=== PATIENT | female | born 1970 | race Caucasian/White ===

== ENCOUNTER 2025-01-07 11:08 | Inpatient (IN) | payer MEDICARE, OTHER ==
[2025-01-07] VITALS (13 sets, daily range): BP systolic 90–110; BP diastolic 56–81; TEMP 97.9–98.5; O2SAT 95–98
[~2025-01-07] VITALS: Ht 165.1 cm; Wt 104.3 kg
[2025-01-07] MEDS ORDERED: ACETAMINOPHEN 650 MG/SUPP.RECT RC ONE (11:42)
[2025-01-07] MEDS: IV NS 0.9% 1,000 ML BAG IV ONE (11:45)
[2025-01-07 11:52] LABS: BASOPHILS % (AUTO) 0.2 % (0.0-2.0); EOSINOPHILS % (AUTO) 0.1 % (0.0-6.0); HEMATOCRIT 39 % (33-45); HEMOGLOBIN 12.9 g/dL (11.5-14.8); LYMPHOCYTES # (AUTO) 0.6 K/uL (0.8-4.8); LYMPHOCYTES % (AUTO) 3.2 % (20.0-44.0); MEAN CORPUSCULAR HEMOGLOBIN 30 PG (26.0-33.0); MEAN CORPUSCULAR HGB CONC 33 g/dl (31.0-36.0); MEAN CORPUSCULAR VOLUME 90 fL (82-100); MONOCYTES # (AUTO) 0.7 K/uL (0.1-1.30); MONOCYTES % (AUTO) 4.3 % (2.0-12.0); NEUTROPHILS % (AUTO) 92.2 % (43.0-81.0); PLATELET COUNT (AUTO) 243 K/uL (150-450); RED BLOOD CELL COUNT(AUTO) 4.31 MIL/uL (4.0-5.2); RED CELL DISTRIBUTION WIDTH 13.4 % (11.5-15.0); WHITE BLOOD COUNT (AUTO) 17.4 K/uL (4.3-11.0)
[2025-01-07] MEDS: ACETAMINOPHEN 650 MG/SUPP.RECT RC ONE (11:53)
[2025-01-07] MEDS: PIPERACILLIN /TAZOBACTAM 3.375 G in IV D5W 50 ML IV ONE (11:54)
[2025-01-07 11:59] LABS: CALCIUM, SERUM 8.8 mg/dL (8.5-10.1); CARBON DIOXIDE 23 mmol/L (21-32); CHLORIDE 104 mmol/L (98-107); CREATININE 1.4 mg/dL (0.6-1.3); GLUCOSE 207 mg/dL (74-106); POTASSIUM 4.4 mmol/L (3.5-5.1); SODIUM SERUM 139 mmol/L (136-145); UREA NITROGEN, BLOOD 14 mg/dL (7-18)
[2025-01-07 12:05] LABS: ALANINE AMINOTRANSFERASE 70 U/L (12-78); ALKALINE PHOSPHATASE 154 U/L (46-116); ASPARTATE AMINOTRANSFERASE 69 U/L (15-37); BILIRUBIN,DIRECT 0.2 mg/dL (0.0-0.2); BILIRUBIN,TOTAL 0.7 mg/dL (0.2-1.0); TOTAL PROTEIN, SERUM 7.4 g/dL (6.4-8.2)
[2025-01-07] MEDS ORDERED: BISA10SU11 RC (12:06)
[2025-01-07] MEDS ORDERED: LEVO5TAB29 PO (12:06)
[2025-01-07] MEDS ORDERED: OXYC5TAB3 PO (12:06)
[2025-01-07] MEDS ORDERED: FLUT16SP BNOSTRILS (12:06)
[2025-01-07] MEDS ORDERED: ACID1TAB14 PO (12:06)
[2025-01-07] MEDS ORDERED: SODI45SP6 BNOSTRILS (12:06)
[2025-01-07] MEDS ORDERED: SIMV-49 PO (12:06)
[2025-01-07] MEDS ORDERED: NA P133E RC (12:06)
[2025-01-07] MEDS ORDERED: PANT40TA49 PO (12:06)
[2025-01-07] MEDS ORDERED: MAGN400O6 PO (12:06)
[2025-01-07] MEDS ORDERED: DIPH25TA62 PO (12:06)
[2025-01-07] MEDS ORDERED: ACET325T53 PO ×2 (12:06)
[2025-01-07] MEDS ORDERED: ALBU18HF2 IH (12:06)
[2025-01-07] MEDS ORDERED: ACET-73 PO (12:06)
[2025-01-07] MEDS ORDERED: PREG-57 PO (12:06)
[2025-01-07] MEDS ORDERED: LEVO75TA7 PO (12:06)
[2025-01-07] MEDS ORDERED: SENN-261 PO (12:06)
[2025-01-07 12:10] LABS: APPEARANCE,URINE CLEAR (CLEAR); BILIRUBIN,URINE SMALL (NEGATIVE); BLOOD, URINE Large Ery/uL (NEGATIVE); COLOR,URINE YELLOW (YELLOW); KETONES,URINE 40 mg/dL (NEGATIVE); LEUKOCYTE ESTERASE ,URINE Trace (NEGATIVE); PROTEIN,URINE 100 mg/dl (NEGATIVE); UGLUCOSE Negative (NEGATIVE)
[2025-01-07 12:11] LABS: LACTIC ACID 6.3 mmol/L (0.4-2.0)
[2025-01-07 12:13] LABS: NITRITE, URINE NEGATIVE (NEGATIVE)
[2025-01-07 12:19] LABS: INR 0.99 (0.91-1.10); PARTIAL THROMBOPLASTIN TIME 24.7 SEC (24.3-34.3); PROTHROMBIN TIME 10.2 SECS (9.2-11.1)
[2025-01-07 12:28] LABS: ADD URINE CULTURE NO; BACTERIA,URINE Few /HPF (None Seen)
[2025-01-07] MEDS: VANCOMYCIN 1 GM in IV D5W 250 ML IV ONE (12:28)
[2025-01-07] MEDS ORDERED: NOREPINEPHRINE 8 MG in IV D5W 242 ML IV PRN ×2 (13:00→17:00)
[2025-01-07] MEDS: ENOXAPARIN SODIUM 40 MG/0.4 ML DISP.SYRIN SQ SCH (14:00)
[2025-01-07] MEDS: IV D5/ 0.9% NACL 1,000 ML IV PRN (14:44)
[2025-01-07] MEDS ORDERED: IBUPROFEN 400 MG TABLET ONE (15:20)
[2025-01-07] MEDS: IBUPROFEN 400 MG TABLET PO ONE (15:28)
[2025-01-07] MEDS: VANCOMYCIN HCL 1.25 GM in IV D5W 250 ML IV ONE (17:00)
[2025-01-07] MEDS: FLUTICASONE PROPIONATE 16 GM BOTTLE NS SCH (19:11)
[2025-01-07] MEDS: PIPERACILLIN /TAZOBACTAM 3.375 G in IV D5W 100 ML IV SCH (19:58)
[2025-01-07] MEDS: SENNOSIDES 8.6 MG TABLET PO SCH (23:16)
[2025-01-07] MEDS: SIMVASTATIN 20 MG TABLET PO SCH (23:16)
[2025-01-08] VITALS (28 sets, daily range): BP systolic 93–125; BP diastolic 50–89; TEMP 98–99.5; O2SAT 94–99
[2025-01-08 04:24] LABS: BASOPHILS % (AUTO) 0.3 % (0.0-2.0); EOSINOPHILS # (AUTO) 0.4 K/uL (0.0-0.7); EOSINOPHILS % (AUTO) 2.8 % (0.0-6.0); HEMATOCRIT 34 % (33-45); HEMOGLOBIN 11.5 g/dL (11.5-14.8); LYMPHOCYTES # (AUTO) 0.9 K/uL (0.8-4.8); LYMPHOCYTES % (AUTO) 5.9 % (20.0-44.0); MEAN CORPUSCULAR HEMOGLOBIN 30 PG (26.0-33.0); MEAN CORPUSCULAR HGB CONC 34 g/dl (31.0-36.0); MEAN CORPUSCULAR VOLUME 90 fL (82-100); MONOCYTES # (AUTO) 1.1 K/uL (0.1-1.30); MONOCYTES % (AUTO) 7.2 % (2.0-12.0); NEUTROPHILS # (AUTO) 12.4 K/uL (1.8-8.9); NEUTROPHILS % (AUTO) 83.8 % (43.0-81.0); PLATELET COUNT (AUTO) 197 K/uL (150-450); RED CELL DISTRIBUTION WIDTH 13.7 % (11.5-15.0); WHITE BLOOD COUNT (AUTO) 14.8 K/uL (4.3-11.0)
[2025-01-08 04:45] LABS: CALCIUM, SERUM 8.3 mg/dL (8.5-10.1); CREATININE 0.8 mg/dL (0.6-1.3); MAGNESIUM 1.9 mg/dL (1.8-2.4); PHOSPHORUS 3.6 mg/dL (2.5-4.9); POTASSIUM 3.9 mmol/L (3.5-5.1)
[2025-01-08] MEDS: ACETAMINOPHEN 325 MG TABLET PO PRN (05:01)
[2025-01-08] MEDS: PANTOPRAZOLE 40 MG TABLET.DR PO SCH (07:58)
[2025-01-08] MEDS: LEVOTHYROXINE SODIUM 75 MCG TABLET PO SCH (07:59)
[2025-01-08] MEDS: ACIDOPHILUS/BULGARICUS 1 EACH TAB.CHEW PO SCH (08:01)
[2025-01-08] MEDS ORDERED: GUAIFENESIN/CODEINE 10 ML UDC PO PRN (12:00)
[2025-01-08] MEDS: ONDANSETRON HCL/PF 4 MG/2 ML VIAL IVP PRN (15:54)
[2025-01-08] MEDS: VANCOMYCIN 1 GM in IV D5W 250ml IV SCH (16:00)
[2025-01-08] MEDS: PREGABALIN 25 MG CAPSULE PO SCH (16:02)
[2025-01-08] MEDS: VANCOMYCIN 500 MG in IV D5W 100ml IV SCH (17:46)
[2025-01-08] MEDS: GUAIFENESIN/D-METHORPHAN HB 5 ML UDC PO PRN (18:47)
[2025-01-08] MEDS: ZOLPIDEM TARTRATE 5 MG TABLET PO PRN (23:49)
[2025-01-09] VITALS: BP 129/81; TEMP 98.2; O2SAT 95
[2025-01-09 04:00] VITALS: BP 139/86; TEMP 98.8; O2SAT 98
[2025-01-09 08:00] VITALS: BP 119/85; TEMP 98.2; O2SAT 92
[2025-01-09 12:00] VITALS: BP 116/73; TEMP 98.6; O2SAT 92
[2025-01-09] MEDS: diphenhydrAMINE HCL 50 MG/ML VIAL IV ONE (13:00)
[2025-01-09] MEDS: METOCLOPRAMIDE HCL 10 MG/2 ML VIAL IV ONE (13:00)
[2025-01-09 16:00] VITALS: BP 101/58; TEMP 98.6; O2SAT 92
[2025-01-09 17:25] LABS: CREATININE 0.7 mg/dL (0.6-1.3); POTASSIUM 3.8 mmol/L (3.5-5.1)
[2025-01-09 17:45] LABS: BASOPHILS % (AUTO) 0.5 % (0.0-2.0); EOSINOPHILS # (AUTO) 0.4 K/uL (0.0-0.7); EOSINOPHILS % (AUTO) 4.2 % (0.0-6.0); HEMATOCRIT 33 % (33-45); HEMOGLOBIN 11.2 g/dL (11.5-14.8); LYMPHOCYTES # (AUTO) 1.6 K/uL (0.8-4.8); LYMPHOCYTES % (AUTO) 15.9 % (20.0-44.0); MEAN CORPUSCULAR HEMOGLOBIN 30 PG (26.0-33.0); MEAN CORPUSCULAR HGB CONC 34 g/dl (31.0-36.0); MEAN CORPUSCULAR VOLUME 88 fL (82-100); MONOCYTES % (AUTO) 10.4 % (2.0-12.0); NEUTROPHILS # (AUTO) 6.9 K/uL (1.8-8.9); PLATELET COUNT (AUTO) 200 K/uL (150-450); RED BLOOD CELL COUNT(AUTO) 3.71 MIL/uL (4.0-5.2); RED CELL DISTRIBUTION WIDTH 13.7 % (11.5-15.0)
[2025-01-09] MEDS: VANCOMYCIN 1 GM in IV D5W 250ml IV SCH (18:04)
[2025-01-09 20:00] VITALS: BP 113/71; TEMP 98.8; O2SAT 94
[2025-01-10] VITALS (8 sets, daily range): BP systolic 105–126; BP diastolic 69–88; TEMP 97.9–98.4; O2SAT 90–99
[2025-01-10 07:19] LABS: BASOPHILS # (AUTO) 0.1 K/uL (0.0-0.2); BASOPHILS % (AUTO) 0.6 % (0.0-2.0); EOSINOPHILS # (AUTO) 0.4 K/uL (0.0-0.7); HEMATOCRIT 34 % (33-45); HEMOGLOBIN 11.8 g/dL (11.5-14.8); LYMPHOCYTES # (AUTO) 1.6 K/uL (0.8-4.8); LYMPHOCYTES % (AUTO) 16.5 % (20.0-44.0); MEAN CORPUSCULAR HEMOGLOBIN 31 PG (26.0-33.0); MEAN CORPUSCULAR HGB CONC 35 g/dl (31.0-36.0); MEAN CORPUSCULAR VOLUME 88 fL (82-100); MONOCYTES # (AUTO) 0.9 K/uL (0.1-1.30); MONOCYTES % (AUTO) 9.6 % (2.0-12.0); NEUTROPHILS # (AUTO) 6.7 K/uL (1.8-8.9); NEUTROPHILS % (AUTO) 69.3 % (43.0-81.0); PLATELET COUNT (AUTO) 222 K/uL (150-450); RED BLOOD CELL COUNT(AUTO) 3.82 MIL/uL (4.0-5.2); RED CELL DISTRIBUTION WIDTH 13.2 % (11.5-15.0); WHITE BLOOD COUNT (AUTO) 9.7 K/uL (4.3-11.0)
[2025-01-10 07:36] LABS: CREATININE 0.8 mg/dL (0.6-1.3); MAGNESIUM 1.6 mg/dL (1.8-2.4); PHOSPHORUS 4.2 mg/dL (2.5-4.9)
[2025-01-10] MEDS: MAGNESIUM OXIDE 400 MG TABLET PO ONE (09:31)
[2025-01-10] MEDS: oxyCODONE IR immediate release 5 MG TABLET PO PRN (14:14)
[2025-01-10] MEDS: ALBUTEROL FS 2.5 MG/3 ML VIAL.NEB NEB PRN (14:44)
[2025-01-11 01:01] LABS: EOSINOPHILS % (AUTO) 5.4 % (0.0-6.0); HEMATOCRIT 35 % (33-45); HEMOGLOBIN 12.1 g/dL (11.5-14.8); LYMPHOCYTES % (AUTO) 21.6 % (20.0-44.0); MEAN CORPUSCULAR HEMOGLOBIN 30 PG (26.0-33.0); MEAN CORPUSCULAR HGB CONC 35 g/dl (31.0-36.0); MEAN CORPUSCULAR VOLUME 87 fL (82-100); MONOCYTES % (AUTO) 11.8 % (2.0-12.0); NEUTROPHILS % (AUTO) 60.5 % (43.0-81.0); PLATELET COUNT (AUTO) 240 K/uL (150-450); RED BLOOD CELL COUNT(AUTO) 4.03 MIL/uL (4.0-5.2); RED CELL DISTRIBUTION WIDTH 13.2 % (11.5-15.0); WHITE BLOOD COUNT (AUTO) 8.8 K/uL (4.3-11.0)
[2025-01-11 01:02] LABS: BASOPHILS # (AUTO) 0.1 K/uL (0.0-0.2); BASOPHILS % (AUTO) 0.7 % (0.0-2.0); EOSINOPHILS # (AUTO) 0.5 K/uL (0.0-0.7); LYMPHOCYTES # (AUTO) 1.9 K/uL (0.8-4.8); NEUTROPHILS # (AUTO) 5.3 K/uL (1.8-8.9)
[2025-01-11 01:51] LABS: CALCIUM, SERUM 9.8 mg/dL (8.5-10.1); CREATININE 0.9 mg/dL (0.6-1.3); MAGNESIUM 1.7 mg/dL (1.8-2.4); PHOSPHORUS 5.5 mg/dL (2.5-4.9); POTASSIUM 3.8 mmol/L (3.5-5.1)
[2025-01-11 04:00] VITALS: BP_SYST 105; BP_SYST 125; BP_DIAS 71; TEMP 97.6; O2SAT 95
[2025-01-11 08:00] VITALS: BP 109/80; TEMP 98.2; O2SAT 93
[2025-01-11] MEDS: MAGNESIUM OXIDE 400 MG TABLET PO ONE (09:39)
[2025-01-11] MEDS: diphenhydrAMINE HCL 50 MG/ML VIAL IV ONE (14:30)
[2025-01-11] MEDS: METOCLOPRAMIDE HCL 10 MG/2 ML VIAL IV ONE (14:39)
[2025-01-11 16:00] VITALS: BP 120/90; TEMP 98.1; O2SAT 93
[2025-01-11] MEDS: PHENAZOPYRIDINE HCL 200 MG TABLET PO SCH (17:00)
[2025-01-11 20:00] VITALS: BP 112/56; TEMP 98.4; O2SAT 94
[2025-01-11] MEDS: MAG HYDROX/AL HYDROX/SIMETH 30 ML UDC PO PRN (20:26)
[2025-01-12 04:00] VITALS: BP 115/76; TEMP 98.1; O2SAT 94
[2025-01-12 06:48] LABS: CALCIUM, SERUM 9.8 mg/dL (8.5-10.1); CREATININE 2.3 mg/dL (0.6-1.3); POTASSIUM 3.8 mmol/L (3.5-5.1)
[2025-01-12 08:00] VITALS: BP 114/70; TEMP 99.1; O2SAT 97
[2025-01-12 08:52] LABS: ALBUMIN 2.8 g/dL (3.4-5.0); BILIRUBIN,DIRECT 0.2 mg/dL (0.0-0.2); BILIRUBIN,TOTAL 0.9 mg/dL (0.2-1.0); MAGNESIUM 2.2 mg/dL (1.8-2.4); PHOSPHORUS 5.3 mg/dL (2.5-4.9); TOTAL PROTEIN, SERUM 7.8 g/dL (6.4-8.2)
[2025-01-12] MEDS: MAGNESIUM HYDROXIDE 30 ML UDC PO PRN (09:35)
[2025-01-12] MEDS: SUCRALFATE 1 G/10 ML UDC GT SCH (12:00)
[2025-01-12 16:00] VITALS: BP 100/62; TEMP 97.7; O2SAT 96
[2025-01-12] MEDS ORDERED: NEPRO VAN 237 ML CAN PO PRN (17:30)
[2025-01-12 20:00] VITALS: BP 120/78; TEMP 98.2; O2SAT 91
[2025-01-12] MEDS ORDERED: VANCOMYCIN HCL 1.25 GM in IV D5W 250 ML IV SCH (22:00)
[2025-01-13 04:00] VITALS: BP 105/69; TEMP 98; O2SAT 91
[2025-01-13 06:40] LABS: BASOPHILS # (AUTO) 0.1 K/uL (0.0-0.2); BASOPHILS % (AUTO) 0.7 % (0.0-2.0); EOSINOPHILS # (AUTO) 0.5 K/uL (0.0-0.7); EOSINOPHILS % (AUTO) 3.8 % (0.0-6.0); HEMATOCRIT 36 % (33-45); HEMOGLOBIN 12.2 g/dL (11.5-14.8); LYMPHOCYTES % (AUTO) 16.2 % (20.0-44.0); MEAN CORPUSCULAR HEMOGLOBIN 29 PG (26.0-33.0); MEAN CORPUSCULAR HGB CONC 34 g/dl (31.0-36.0); MEAN CORPUSCULAR VOLUME 88 fL (82-100); MONOCYTES # (AUTO) 2.1 K/uL (0.1-1.30); MONOCYTES % (AUTO) 17.4 % (2.0-12.0); NEUTROPHILS # (AUTO) 7.5 K/uL (1.8-8.9); NEUTROPHILS % (AUTO) 61.9 % (43.0-81.0); PLATELET COUNT (AUTO) 289 K/uL (150-450); RED BLOOD CELL COUNT(AUTO) 4.16 MIL/uL (4.0-5.2); RED CELL DISTRIBUTION WIDTH 13.5 % (11.5-15.0); WHITE BLOOD COUNT (AUTO) 12.1 K/uL (4.3-11.0)
[2025-01-13 07:04] LABS: CREATININE 3.1 mg/dL (0.6-1.3); MAGNESIUM 2.3 mg/dL (1.8-2.4); PHOSPHORUS 4.4 mg/dL (2.5-4.9); POTASSIUM 3.8 mmol/L (3.5-5.1)
[2025-01-13 07:17] LABS: APPEARANCE,URINE CLEAR (CLEAR); BILIRUBIN,URINE NEGATIVE (NEGATIVE); BLOOD, URINE TRACE-INTA Ery/uL (NEGATIVE); COLOR,URINE YELLOW (YELLOW); KETONES,URINE NEGATIVE (NEGATIVE); LEUKOCYTE ESTERASE ,URINE NEGATIVE (NEGATIVE); NITRITE, URINE POSITIVE (NEGATIVE); PROTEIN,URINE NEGATIVE (NEGATIVE); UGLUCOSE NEGATIVE (NEGATIVE); UROBILINOGEN,URINE 0.2 EU/dL (0.2)
[2025-01-13 07:33] LABS: ADD URINE CULTURE YES; BACTERIA,URINE Few /HPF (None Seen); WBC,URINE 0-2 /HPF (0-3); YEAST,URINE Few /HPF (None Seen)
[2025-01-13 08:00] VITALS: BP 91/59; TEMP 97.3; O2SAT 95
[2025-01-13 08:57] LABS: EOSINOPHIL,URINE None Seen
[2025-01-13 10:15] LABS: EOSINOPHILS % (MANUAL) 3 % (0-4); LYMPHOCYTES % (MANUAL) 11 % (16-48); MONOCYTES % (MANUAL) 8 % (0-11.0); NEUTROPHILS % (MANUAL) 78 (42-76); PLATELET ESTIMATE ADEQUATE
[2025-01-13 10:16] LABS: ANISOCYTOSIS 1+; STOMATOCYTES 1+
[2025-01-13] MEDS: IV NS 0.9% 1,000 ML IV SCH (11:20)
[2025-01-13 16:00] VITALS: BP 99/64; TEMP 98.6; O2SAT 97
[2025-01-13 17:30] LABS: CREATININE 3.2 mg/dL (0.6-1.3); POTASSIUM 4.1 mmol/L (3.5-5.1)
[2025-01-13 20:00] VITALS: BP 112/75; TEMP 98.4; O2SAT 95
[2025-01-14 04:00] VITALS: BP 109/67; TEMP 97.7; O2SAT 97
[2025-01-14 08:00] VITALS: BP 107/44; TEMP 97.9; O2SAT 95
[2025-01-14] MEDS: ENOXAPARIN SODIUM 30 MG/0.3 ML DISP.SYRIN SQ SCH (09:51)
[2025-01-14] MEDS: ALPRAZOLAM 0.25 MG TABLET PO PRN (09:52)
[2025-01-14 11:14] LABS: CREATININE 3.3 mg/dL (0.6-1.3); POTASSIUM 3.8 mmol/L (3.5-5.1)
[2025-01-14 11:27] LABS: ALBUMIN 2.8 g/dL (3.4-5.0); BILIRUBIN,DIRECT 0.1 mg/dL (0.0-0.2); BILIRUBIN,TOTAL 0.5 mg/dL (0.2-1.0); MAGNESIUM 2.5 mg/dL (1.8-2.4); PHOSPHORUS 3.9 mg/dL (2.5-4.9); TOTAL PROTEIN, SERUM 7.8 g/dL (6.4-8.2)
[2025-01-14 12:00] VITALS: BP 113/86; TEMP 97.9; O2SAT 95
[2025-01-14 16:00] VITALS: BP 133/116; TEMP 98.2; O2SAT 95
[2025-01-14 20:00] VITALS: BP 104/66; TEMP 99; O2SAT 95
[2025-01-15 04:00] VITALS: BP 110/71; TEMP 98.6; O2SAT 96
[2025-01-15] MEDS: Z GUARD REMEDY 4 OZ OINT TP PRN (05:15)
[2025-01-15 06:16] LABS: CALCIUM, SERUM 8.9 mg/dL (8.5-10.1); CREATININE 2.9 mg/dL (0.6-1.3)
[2025-01-15 08:00] VITALS: BP 125/67; TEMP 98; O2SAT 99
[2025-01-15] MEDS: SUCRALFATE 1 G TABLET PO SCH (10:13)
[2025-01-15 12:00] VITALS: BP 127/61; TEMP 98; O2SAT 99
[2025-01-15 18:40] VITALS: BP 125/60; O2SAT 99
[2025-01-15 20:00] VITALS: BP 122/77; TEMP 99.1; O2SAT 93
[2025-01-16 04:00] VITALS: BP 123/67; TEMP 98.2; O2SAT 98
[2025-01-16 07:15] LABS: BASOPHILS # (AUTO) 0.1 K/uL (0.0-0.2); BASOPHILS % (AUTO) 0.7 % (0.0-2.0); EOSINOPHILS # (AUTO) 0.4 K/uL (0.0-0.7); EOSINOPHILS % (AUTO) 2.8 % (0.0-6.0); HEMATOCRIT 37 % (33-45); HEMOGLOBIN 12.2 g/dL (11.5-14.8); LYMPHOCYTES # (AUTO) 2.2 K/uL (0.8-4.8); LYMPHOCYTES % (AUTO) 15.5 % (20.0-44.0); MEAN CORPUSCULAR HEMOGLOBIN 30 PG (26.0-33.0); MEAN CORPUSCULAR HGB CONC 33 g/dl (31.0-36.0); MEAN CORPUSCULAR VOLUME 90 fL (82-100); MONOCYTES # (AUTO) 1.2 K/uL (0.1-1.30); MONOCYTES % (AUTO) 8.3 % (2.0-12.0); NEUTROPHILS # (AUTO) 10.4 K/uL (1.8-8.9); NEUTROPHILS % (AUTO) 72.7 % (43.0-81.0); PLATELET COUNT (AUTO) 277 K/uL (150-450); RED CELL DISTRIBUTION WIDTH 13.3 % (11.5-15.0); WHITE BLOOD COUNT (AUTO) 14.2 K/uL (4.3-11.0)
[2025-01-16 07:38] LABS: MAGNESIUM 2.2 mg/dL (1.8-2.4); PHOSPHORUS 4.2 mg/dL (2.5-4.9)
[2025-01-16 07:45] LABS: CALCIUM, SERUM 8.9 mg/dL (8.5-10.1); CREATININE 2.7 mg/dL (0.6-1.3); POTASSIUM 4.9 mmol/L (3.5-5.1)
[2025-01-16 08:00] VITALS: BP 118/66; TEMP 98.5; O2SAT 95
[2025-01-16 16:00] VITALS: BP 114/79; TEMP 99.1; O2SAT 95
[2025-01-16] MEDS: IV NS 0.9% 1,000 ML IV PRN (17:19)
[2025-01-16 20:00] VITALS: BP 110/70; TEMP 98.4; O2SAT 92
[2025-01-17 04:00] VITALS: BP 120/85; TEMP 99.5; O2SAT 99
[2025-01-17 06:33] LABS: BASOPHILS # (AUTO) 0.1 K/uL (0.0-0.2); BASOPHILS % (AUTO) 0.4 % (0.0-2.0); EOSINOPHILS # (AUTO) 0.3 K/uL (0.0-0.7); EOSINOPHILS % (AUTO) 2.3 % (0.0-6.0); HEMATOCRIT 35 % (33-45); HEMOGLOBIN 11.5 g/dL (11.5-14.8); LYMPHOCYTES # (AUTO) 1.8 K/uL (0.8-4.8); LYMPHOCYTES % (AUTO) 12.3 % (20.0-44.0); MEAN CORPUSCULAR HEMOGLOBIN 29 PG (26.0-33.0); MEAN CORPUSCULAR HGB CONC 33 g/dl (31.0-36.0); MEAN CORPUSCULAR VOLUME 89 fL (82-100); MONOCYTES # (AUTO) 0.9 K/uL (0.1-1.30); MONOCYTES % (AUTO) 6.3 % (2.0-12.0); NEUTROPHILS # (AUTO) 11.4 K/uL (1.8-8.9); NEUTROPHILS % (AUTO) 78.7 % (43.0-81.0); PLATELET COUNT (AUTO) 369 K/uL (150-450); RED BLOOD CELL COUNT(AUTO) 3.94 MIL/uL (4.0-5.2); RED CELL DISTRIBUTION WIDTH 13.3 % (11.5-15.0); WHITE BLOOD COUNT (AUTO) 14.5 K/uL (4.3-11.0)
[2025-01-17 06:51] LABS: CALCIUM, SERUM 9.5 mg/dL (8.5-10.1); CREATININE 2.7 mg/dL (0.6-1.3); MAGNESIUM 2.3 mg/dL (1.8-2.4); PHOSPHORUS 4.1 mg/dL (2.5-4.9); POTASSIUM 4.3 mmol/L (3.5-5.1)
[2025-01-17 08:00] VITALS: BP 111/70; TEMP 98.8; O2SAT 96
[2025-01-17 16:00] VITALS: BP 122/73; TEMP 98.8; O2SAT 94
[2025-01-17 20:00] VITALS: BP 137/82; TEMP 98.4; O2SAT 94
[2025-01-18 04:00] VITALS: BP 132/84; TEMP 98.1; O2SAT 96
[2025-01-18 08:00] VITALS: BP 120/70; TEMP 98.2; O2SAT 92
[2025-01-18] MEDS: HEPARIN SODIUM, PORCINE 5000 UNITS/1 ML VIAL SQ SCH (08:56)
[2025-01-18 09:40] LABS: BASOPHILS # (AUTO) 0.1 K/uL (0.0-0.2); BASOPHILS % (AUTO) 0.6 % (0.0-2.0); EOSINOPHILS # (AUTO) 0.3 K/uL (0.0-0.7); EOSINOPHILS % (AUTO) 2.4 % (0.0-6.0); HEMATOCRIT 35 % (33-45); HEMOGLOBIN 11.7 g/dL (11.5-14.8); LYMPHOCYTES # (AUTO) 1.8 K/uL (0.8-4.8); MEAN CORPUSCULAR HEMOGLOBIN 30 PG (26.0-33.0); MEAN CORPUSCULAR HGB CONC 33 g/dl (31.0-36.0); MEAN CORPUSCULAR VOLUME 89 fL (82-100); MONOCYTES # (AUTO) 0.9 K/uL (0.1-1.30); MONOCYTES % (AUTO) 6.6 % (2.0-12.0); NEUTROPHILS # (AUTO) 10.7 K/uL (1.8-8.9); NEUTROPHILS % (AUTO) 77.4 % (43.0-81.0); PLATELET COUNT (AUTO) 403 K/uL (150-450); RED BLOOD CELL COUNT(AUTO) 3.95 MIL/uL (4.0-5.2); WHITE BLOOD COUNT (AUTO) 13.8 K/uL (4.3-11.0)
[2025-01-18 09:57] LABS: CALCIUM, SERUM 9.7 mg/dL (8.5-10.1); CREATININE 2.8 mg/dL (0.6-1.3); MAGNESIUM 2.4 mg/dL (1.8-2.4); PHOSPHORUS 4.7 mg/dL (2.5-4.9); POTASSIUM 4.3 mmol/L (3.5-5.1)
[2025-01-18] MEDS: POLYETHYLENE GLYCOL 3350 17 GM POWD.PACK PO PRN (10:22)
[2025-01-18 16:00] VITALS: BP 108/72; TEMP 98.2; O2SAT 97
[2025-01-18 16:33] LABS: APPEARANCE,URINE CLEAR (CLEAR); BILIRUBIN,URINE NEGATIVE (NEGATIVE); BLOOD, URINE TRACE Ery/uL (NEGATIVE); COLOR,URINE YELLOW (YELLOW); KETONES,URINE NEGATIVE (NEGATIVE); LEUKOCYTE ESTERASE ,URINE NEGATIVE (NEGATIVE); NITRITE, URINE NEGATIVE (NEGATIVE); PROTEIN,URINE NEGATIVE (NEGATIVE); UGLUCOSE NEGATIVE (NEGATIVE); UROBILINOGEN,URINE 0.2 EU/dL (0.2)
[2025-01-18] MEDS: BISMUTH SUBSALICYLATE 262 MG/15 ML BOTTLE PO PRN (16:47)
[2025-01-18 16:50] LABS: THYROID STIMULATING HORMONE 3.93 uIU/mL (0.358-3.74)
[2025-01-18 16:50] LABS: CREATININE, URINE 27.9 MG/DL (30.0-125.0)
[2025-01-18 16:59] LABS: URINE TOTAL PROTEIN 10.2 mg/dL (0-11.9)
[2025-01-18 17:34] LABS: ADD URINE CULTURE NO; BACTERIA,URINE None seen /HPF (None Seen); SQUAMOUS EPITHELIAL CELL,UR 0-2 /HPF (None Seen); WBC,URINE 0-2 /HPF (0-3)
[2025-01-18 19:54] LABS: EOSINOPHIL,URINE None Seen
[2025-01-18 20:32] VITALS: BP 128/79; TEMP 98.9; O2SAT 92
[2025-01-19 04:16] VITALS: BP 127/83; TEMP 98.2; O2SAT 94
[2025-01-19 06:56] LABS: BASOPHILS # (AUTO) 0.1 K/uL (0.0-0.2); BASOPHILS % (AUTO) 0.7 % (0.0-2.0); EOSINOPHILS # (AUTO) 0.4 K/uL (0.0-0.7); EOSINOPHILS % (AUTO) 3.1 % (0.0-6.0); HEMATOCRIT 34 % (33-45); HEMOGLOBIN 11.4 g/dL (11.5-14.8); LYMPHOCYTES # (AUTO) 1.9 K/uL (0.8-4.8); MEAN CORPUSCULAR HEMOGLOBIN 30 PG (26.0-33.0); MEAN CORPUSCULAR HGB CONC 34 g/dl (31.0-36.0); MEAN CORPUSCULAR VOLUME 88 fL (82-100); MONOCYTES % (AUTO) 7.6 % (2.0-12.0); NEUTROPHILS # (AUTO) 9.4 K/uL (1.8-8.9); NEUTROPHILS % (AUTO) 73.6 % (43.0-81.0); PLATELET COUNT (AUTO) 416 K/uL (150-450); RED BLOOD CELL COUNT(AUTO) 3.83 MIL/uL (4.0-5.2); RED CELL DISTRIBUTION WIDTH 13.2 % (11.5-15.0); WHITE BLOOD COUNT (AUTO) 12.7 K/uL (4.3-11.0)
[2025-01-19 07:08] LABS: CALCIUM, SERUM 9.6 mg/dL (8.5-10.1); CREATININE 2.5 mg/dL (0.6-1.3); MAGNESIUM 2.7 mg/dL (1.8-2.4); POTASSIUM 4.6 mmol/L (3.5-5.1)
[2025-01-19 08:00] VITALS: BP 117/69; TEMP 98.8; O2SAT 96
[2025-01-19 09:16] VITALS: BP 117/69; TEMP 98.8; O2SAT 96
[2025-01-19] MEDS ORDERED: ALPR0.255 PO (10:25)
[2025-01-19] MEDS ORDERED: MELA5TAB PO (10:25)
== END 2025-01-19 13:50 | DRG 871 ==
LOC: ER 11:10 → ICU 17:02 → TELE1 01-08 12:48 → MEDSG1 01-10 13:29
PROVIDERS: ADMIT Nurse Practitioner Family; ATTEND Nurse Practitioner Acute Care
PROC: 02HV33Z Insertion of Infusion Device into Superior Vena Cava, Percutaneous Approach (ICD-10-PCS; principal; 2025-01-07)
PROC: B548ZZA Ultrasonography of Superior Vena Cava, Guidance (ICD-10-PCS; 2025-01-07)
DX: A41.9 Sepsis, unspecified organism (principal); J69.0 Pneumonitis due to inhalation of food and vomit; J96.01 Acute respiratory failure with hypoxia; R65.21 Severe sepsis with septic shock; N17.0 Acute kidney failure with tubular necrosis; K21.9 Gastro-esophageal reflux disease without esophagitis; E03.9 Hypothyroidism, unspecified; E66.01 Morbid (severe) obesity due to excess calories; E78.5 Hyperlipidemia, unspecified; E86.1 Hypovolemia; F70 Mild intellectual disabilities; I10 Essential (primary) hypertension; Z87.891 Personal history of nicotine dependence; Z20.822 Contact with and (suspected) exposure to COVID-19; J44.9 Chronic obstructive pulmonary disease, unspecified; Z68.38 Body mass index [BMI] 38.0-38.9, adult; R26.9 Unspecified abnormalities of gait and mobility; G62.9 Polyneuropathy, unspecified; F41.9 Anxiety disorder, unspecified; F32.A Depression, unspecified; N30.90 Cystitis, unspecified without hematuria; G47.33 Obstructive sleep apnea (adult) (pediatric); M89.8X9 Other specified disorders of bone, unspecified site; E83.9 Disorder of mineral metabolism, unspecified; T36.8X5A Adverse effect of other systemic antibiotics, initial encounter; N14.19 Nephropathy induced by other drugs, medicaments and biological substances; Y92.89 Other specified places as the place of occurrence of the external cause; K52.9 Noninfective gastroenteritis and colitis, unspecified
CPT/HCPCS: 36415; 70450-TC; 71045-TC; 76770-TC; 80048-TC; 80061-TC; 80076-TC; 80202-TC; 81001; 82570-TC; 83605-TC; 83690-TC; 83735-TC; 84100-TC; 84300-TC; 84439-TC; 84443-TC; 85025-TC; 85730-TC; 87040-TC; 87070-TC; 87081-TC; 87086-TC; 87205-TC; 93307-TC; 97110-TC; 97112-TC; 97530-TC; A4223; G0378; J1200; J1644; J1650; J2405; J2543; J2765; J3370; J7030; J7040; J7042; J7050; J7060; J7070